=== PATIENT | female | born 1985 | race Caucasian/White ===

== ENCOUNTER 2018-06-18 20:52 | Emergency (ER) | payer OTHER ==
[~2018-06-18] VITALS: Ht 157.5 cm; Wt 81.7 kg
[2018-06-18] MEDS ORDERED: TRAMADOL 50 MG50 MG PO (22:29)
[2018-06-18] MEDS ORDERED: NORFLEX100 MG PO (22:29)
[2018-06-18] MEDS ORDERED: IBUPROFEN 600600 M1 PO (22:29)
[2018-06-18 23:17] VITALS: BP 120/86
== END 2018-06-18 23:17 | disposition home or self-care (01) ==
LOC: ER 20:52
DX: S16.1XXA Strain of muscle, fascia and tendon at neck level, initial encounter (principal); S40.012A Contusion of left shoulder, initial encounter; F17.210 Nicotine dependence, cigarettes, uncomplicated; V49.09XA Driver injured in collision with other motor vehicles in nontraffic accident, initial encounter; Y93.89 Activity, other specified; Y92.89 Other specified places as the place of occurrence of the external cause; Y99.8 Other external cause status